=== PATIENT | male | born 1965 | race Caucasian/White ===

== ENCOUNTER 2016-11-22 10:05 | Emergency (ER) | payer MEDICARE ==
[2016-11-22] MEDS ORDERED: NALOXONE HCL INJ 1 MG/ML SYG ONE (10:17)
[2016-11-22] MEDS ORDERED: SODIUM CHLORIDE 0.9% 1000ML 1,000 ML ONE ×2 (10:18→11:52)
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
[2016-11-22] MEDS ORDERED: SUCCINYLCHOLINE CHLORIDE 200 MG/10 ML VIAL ONE (10:47)
--- NOTE | 2016-11-22 10:59 | CT ---
EXAM DESCRIPTION: CT HEAD WITHOUT INTRAVENOUS CONTRAST CLINICAL HISTORY: Altered mental status. COMPARISON: None TECHNIQUE: CT of the head was performed without intravenous contrast . FINDINGS: There is no intracranial hemorrhage, midline shift, mass effect or acute focal infarct, given the limitation of motion artifact on the current study, especially through the skullbase. An MRI examination is more sensitive than the current study in evaluation of early acute infarcts, if present or clinically suspected. There is good borges/white matter differentiation. The ventricular system is normal. Visualized mastoid air cells are unremarkable. The paranasal sinuses are unremarkable. There is no visualization of calvarial or skull base fractures. IMPRESSION: There are no acute intracranial findings, given the limitation of motion artifact on the current study, especially through the region of the skullbase. Electronically signed by: Harish Bey MD 11/22/2016 10:57
[2016-11-22] MEDS ORDERED: PROPOFOL 200 MG/20 ML VIAL IV ONE ×2 (11:30)
[2016-11-22] MEDS ORDERED: MIDAZOLAM INJ 5 MG/5 ML VIAL IV ONE (11:43)
[2016-11-22] MEDS ORDERED: SUCCINYLCHOLINE CHLORIDE 200 MG/10 ML VIAL IV ONE (11:43)
[2016-11-22] MEDS ORDERED: VECURONIUM BROMIDE 10 MG VIAL IV ONE (11:43)
[2016-11-22] MEDS ORDERED: WATER FOR INJ 10 ML VIAL INJ ONE ×2 (11:43→12:03)
--- NOTE | 2016-11-22 12:00 | RAD ---
EXAM DESCRIPTION: X-RAY CHEST- ONE VIEW CLINICAL HISTORY: Status post intubation COMPARISON: 12/10/2013 TECHNIQUE: Single view of the chest. FINDINGS: The tip of the endotracheal tube is 2.2 cm above the tracheal bifurcation and can be retracted for additional 2 cm There is presence of mild infiltrates in the right upper lung zone There are no pleural effusions There are no pneumothoraces. The cardiomediastinal silhouette is stable. IMPRESSION: The tip of the endotracheal tube is 2.2 cm above the tracheal bifurcation and can be retracted for additional 2 cm There is presence of mild infiltrates in the right upper lung zone Electronically signed by: Harish Bey MD 11/22/2016 11:58
[2016-11-22 13:46] VITALS: BP 134/88; TEMP 98.9; O2SAT 100
== END 2016-11-22 12:55 | disposition short-term general hospital (02) ==
LOC: ER 10:05
DX: J96.02 Acute respiratory failure with hypercapnia (principal); J96.01 Acute respiratory failure with hypoxia; G89.4 Chronic pain syndrome; Z79.899 Other long term (current) drug therapy; F32.9 Major depressive disorder, single episode, unspecified; I10 Essential (primary) hypertension; Z86.14 Personal history of Methicillin resistant Staphylococcus aureus infection
CPT/HCPCS: 31500; 36415; 36600; 70450; 71010; 80053; 80329; 82803; 82805; 85025; 85379; 93005; 94002; 94770; A4216; G0479; J0330; J2250; J2310; J3490; J7030

== ENCOUNTER 2017-03-24 16:03 | Inpatient (IN) | payer MEDICARE ==
[2017-03-24] MEDS ORDERED: ALUMINUM & MAGNESIUM HYDROXIDE 30 ML UD PO ONE (16:31)
[2017-03-24] MEDS ORDERED: SODIUM CHLORIDE 0.9% 1000ML 1,000 ML IVS ONE ×2 (16:31→18:51)
[2017-03-24] MEDS ORDERED: SUCRALFATE 1 GM/10 ML 1 GM UD PO ONE (16:31)
[2017-03-24] MEDS ORDERED: ONDANSETRON ODT 8 MG TAB SL SCH (17:00)
[2017-03-24] MEDS ORDERED: POTASSIUM CHLORIDE ELIXIR 20 MEQ/15 ML UD PO ONE (17:14)
--- NOTE | 2017-03-24 17:27 | RAD ---
History: Nausea and vomiting. Chest x-ray: PA view is obtained and does not include the lateral costophrenic angle in its entirety. This study is compared with last available study date 11/22/2016. Left lower lung atelectasis versus patchy infiltrate is present. No definite pleural effusion. Contour of the heart and mediastinum is normal. Two-view abdomen is also performed. The upright film includes the lower lateral right chest. Bowel gas pattern is within normal limits with upright view of the upper abdomen only. No unusual calcific or soft tissue density. No pneumatosis. No bony abnormality. IMPRESSION: 1. Patchy left lower lung atelectasis versus early infiltrate. 2. Negative two-view abdomen. Electronically signed by: Maranda Allen MD 03/24/2017 5:26 PM CDT
[2017-03-24] MEDS ORDERED: POTASSIUM CHLORIDE INJ 40 MEQ 40 MEQ in SODIUM CHLORIDE 0.9% 250ML 250 ML IVPB ONE (18:50)
[2017-03-24] MEDS ORDERED: cefTRIAXone SODIUM 1 GM in SODIUM CHL 0.9% 50ML MIN-BAG+ 50 ML IVPB ONE (18:51)
[2017-03-24] MEDS ORDERED: AZITHROMYCIN IV 500 MG in SODIUM CHLORIDE 0.9% 250ML 250 ML IVPB ONE (18:51)
[2017-03-24] MEDS ORDERED: METHADONE HCL 10 MG TAB PO ONE (18:52)
[2017-03-24] MEDS ORDERED: ALPRAZolam 0.25 MG TAB PO ONE (18:52)
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
[2017-03-24] MEDS ORDERED: cefTRIAXone SODIUM 1 GM VIAL ONE (19:08)
[2017-03-24] MEDS ORDERED: SODIUM CHL 0.9% 50ML MIN-BAG+ 50 ML IVPB ONE (19:08)
[2017-03-24] MEDS ORDERED: AZITHROMYCIN IV 500 MG VIAL IVPB ONE (19:58)
[2017-03-24] MEDS ORDERED: SODIUM CHLORIDE 0.9% 250ML 250 ML ONE ×2 (19:58→22:03)
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
[2017-03-24] MEDS ORDERED: ACETAMINOPHEN 325 MG TAB PO PRN (20:56)
[2017-03-24] MEDS ORDERED: SODIUM CHLORIDE 0.9% (FLUSH) 10 ML SYG IV PRN (20:56)
[2017-03-24] MEDS ORDERED: SODIUM CHLORIDE 0.9% (FLUSH) 10 ML SYG IV SCH (21:00)
[2017-03-24] MEDS ORDERED: IV SET AND CAP CHANGE INJ INJ SCH (21:00)
[2017-03-24] MEDS ORDERED: KCL 40MEQ/NS 1,000 ML IVS PRN (21:05)
[2017-03-24] MEDS: LEVALBUTEROL NEBS 1.25 MG/3 ML VIAL NEB PRN (21:50)
[2017-03-24] MEDS: ONDANSETRON INJ 4 MG/2 ML VIAL IV PRN (22:00)
[2017-03-24] MEDS ORDERED: POTASSIUM CHLORIDE 40mEq 20ML VIAL ONE (22:03)
[2017-03-24] MEDS: KCL 20 MEQ/NS 1,000 ML IVS PRN (23:14)
--- NOTE | 2017-03-25 06:51 | RAD ---
EXAM: Two view chest. INDICATION: Chest pain. COMPARISON: Chest x-ray: 11/22/2016. FINDINGS: Cardiac silhouette: Unremarkable. Dulce: Unremarkable. Lobar consolidation: None. Pleural effusion: None. Pneumothorax: None. Other: None. Bones: Unremarkable. Other: None. IMPRESSION: 1. No acute cardiopulmonary process. Electronically signed by: Ayaan Choi MD 03/25/2017 6:51 AM CDT
[2017-03-25] MEDS: LEVALBUTEROL NEBS 1.25 MG/3 ML VIAL NEB SCH ×2 (08:03→16:20)
[2017-03-25] MEDS: KCL 20 MEQ/NS 1,000 ML IVS PRN (09:25)
--- NOTE | 2017-03-25 09:50 | US ---
Study: Right upper quadrant abdominal ultrasound. Indication: elevated Amylase Lipase, need liver, pancreas GB Technical: Multiplanar, grayscale sonogram of the right upper quadrant of the abdomen obtained. Comparison: None. Findings: The liver is diffusely increased in echogenicity consistent with hepatic steatosis. The liver measures 16.8 cm in length. No discrete live mass. Focal fatty sparing noted along the gallbladder fossa. No gallstones, gallbladder wall thickening, or pericholecystic edema. The common bile duct measures 4.9 mm in diameter. No intrahepatic biliary ductal dilatation. The right kidney is unremarkable. The visualized portions of the aorta and inferior vena cava are normal. The pancreas is not optimally characterized secondary to shadowing bowel gas. Impression: Hepatic steatosis and hepatomegaly. Electronically signed by: Ko Blanco MD 03/25/2017 9:49 AM CDT
--- NOTE | 2017-03-25 11:18 | PCM.CORE ---
Physician DVT/VTE - Nurse DVT Assessment & Total Each Risk Factor Represents 3 Points: Medical PT with Hx of IN, CHF, Severe infection/sepsis Each Risk Factor Represents 1 Point: Age 41-60 Each Risk Factor is 1 Point: Obesity (BMI >25) DVT Assessment Score: 5 - 5 or more Very High Risk Treatments: Early Ambulation *, Sequential Compression Device Pharmacological: Enoxaparin 40mg SQ Daily
[2017-03-25] MEDS ORDERED: KCL 20MEQ/0.45% NS 1,000 ML IVS ONE ×2 (11:26→19:41)
[2017-03-25] MEDS ORDERED: POTASSIUM CHLORIDE 10mEq 5ML VIAL ONE ×2 (11:27→19:30)
[2017-03-25] MEDS: ENOXAPARIN SODIUM 40 MG/0.4 ML SYG SUBCU SCH (11:31)
[2017-03-25] MEDS: [UNRECOGNIZED DRUG - OTHER] IV PRN ×2 (11:32→19:41)
[2017-03-25] MEDS: POTASSIUM CHLORIDE IV PRN ×2 (11:32→19:41)
[2017-03-25] MEDS: KCL IV PRN ×2 (11:32→19:41)
[2017-03-25] MEDS ORDERED: PROPRANOLOL HCL 20 MG TAB ONE (12:15)
[2017-03-25] MEDS ORDERED: LISINOPRIL 10 MG TAB ONE (12:15)
[2017-03-25] MEDS ORDERED: METHADONE HCL 10 MG TAB ONE (12:16)
[2017-03-25] MEDS ORDERED: ALPRAZolam 0.5 MG TAB ONE (12:16)
[2017-03-25] MEDS: METHADONE HCL 10 MG TAB PO SCH ×3 (12:18→21:17)
[2017-03-25] MEDS: LISINOPRIL 10 MG TAB PO SCH (12:40)
[2017-03-25] MEDS: ALPRAZolam 0.5 MG TAB PO SCH ×3 (12:41→21:16)
[2017-03-25] MEDS: PROPRANOLOL HCL 20 MG TAB PO SCH ×2 (12:42→21:00)
--- NOTE | 2017-03-25 16:38 | PN ---
DATE: 03/25/17 SUPERVISING PHYSICIAN: Emile Lenz M.D. SUBJECTIVE: The patient is resting in bed. Said he feels a little bit better today. He has not had any nausea through the night. He has had 1 little episode of diarrhea. He remains afebrile. He has had no reported chest pains or abdominal pains. OBJECTIVE: VITAL SIGNS: T max 98.2, pulse 58, blood pressure 116/80, respirations 20, satting 95% on room air. I's and O's: Output not well documented. Weight 107.3. CHEST: Lungs are clear with no rhonchi, wheezing or rales. They are diminished towards both bases. HEART: Regular rate and rhythm. ABDOMEN: Soft, non-tender with positive bowel sounds which were hyperactive. EXTREMITIES: No clubbing, cyanosis or edema. NEUROLOGIC: He is alert and oriented times three. LABORATORY: White count has improved somewhat, still remains with leukocytosis of 13.4, hemoglobin 15.3, hematocrit 46.0 with platelet count 251,000. Differential today shows to be improving but still has a left shift. Chemistries: Potassium has improved now to 3.2 with sodium 141, BUN improved as well to 32, creatinine is down to 1.72, glucose 125, calcium 8.8, C reactive protein was less than 0.5. Amylase is now normalized at 93, lipase is near normal limits at 52. MICROBIOLOGY: Blood cultures are pending. Sputum culture is pending. RADIOLOGY: Ultrasound of the abdomen per radiology interpretation showed hepatic stenosis with hepatomegaly with the common bile duct measuring 4.9 mm in diameter with no gallstones, gallbladder wall thickening or pericholecystic edema noted. Repeat two view chest film this morning per radiology interpretation showed no cardiopulmonary process is noted. ASSESSMENT: 1. Electrolyte imbalance initially with severe hypokalemia secondary to recent episodes of nausea, vomiting and diarrhea showing improvement after replacement with potassium and IV fluids. 2. Nausea, vomiting and diarrhea without any abdominal pains noted felt to be secondary to viral gastroenteritis versus pancreatitis which is complicated by the underlying dehydration which has shown improvement as well as normalization of his pancreatic enzymes with IV fluids. 3. Elevated pancreatic enzymes with no mention of abdominal pain with ultrasound showing no signs of acute pancreatitis with enzymes normalizing after IV fluids felt to be secondary to persistent nausea and vomiting. 4. Leukocytosis with concerns for left lower lobe pneumonia which is showing improvement after initiation of antibiotic therapy with Rocephin, Azithromycin and IV fluids versus some hemoconcentration and concerns initially for acute pancreatitis more likely demarginalization from persistent nausea and vomiting complicated by dehydration. 5. Concerns for left lower lobe pneumonia felt to be showing improvement after initiation of antibiotic therapy likely community acquired with the patient showing improvement. 6. 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 7. Acute renal insufficiency felt to be prerenal azotemia state complicated by dehydration from persistent nausea, vomiting and diarrhea showing improvement after initiation of IV fluids. 8. History of hypertension, stable. 9. History of chronic back pain on methadone. 10. Chronic anxiety disorder on Xanax. PLAN: The patient is showing improvement. Will continue with IV fluids with potassium replacement as well as keep him NPO until his pancreatic enzymes completed normalize and he is no longer having nausea. At that time, will plan to advance the patient's diet as tolerated. He will remain on antibiotics parenteral again for the underlying concern for pneumonia as he has shown improvement but continues to show leukocytosis. Will continue with Xopenex breathing treatments and aggressive pulmonary hygiene. Anticipate possible discharge tomorrow or the next. Until then, continue to monitor the patient closely and treat appropriately. #[id number] [facility]
[2017-03-25] MEDS: BUDESONIDE/FORMOTEROL 160/4.5 60 PUFF/6 GM INH INH SCH (20:11)
[2017-03-25] MEDS ORDERED: SODIUM CHL 0.9% 50ML MIN-BAG+ 50 ML IVPB ONE (20:52)
[2017-03-25] MEDS ORDERED: ZOLPIDEM TARTRATE 5 MG TAB ONE (20:53)
[2017-03-25] MEDS ORDERED: cefTRIAXone SODIUM 1 GM VIAL ONE (20:53)
[2017-03-25] MEDS ORDERED: ZOLPIDEM TARTRATE 10 MG TAB ONE (20:54)
[2017-03-25] MEDS ORDERED: SERTRALINE HCL 50 MG TAB PO SCH (21:00)
[2017-03-25] MEDS ORDERED: cefTRIAXone SODIUM 1 GM in SODIUM CHL 0.9% 50ML MIN-BAG+ 50 ML IVPB SCH (21:00)
[2017-03-25] MEDS ORDERED: AZITHROMYCIN 250 MG TAB PO SCH (21:00)
[2017-03-25] MEDS ORDERED: ZOLPIDEM TARTRATE 12.5 MG PO SCH (21:00)
[2017-03-25] MEDS: CIPROFLOXACIN 500 MG TAB PO SCH (21:16)
[2017-03-25] MEDS ORDERED: MAGNESIUM HYDROXIDE 30 ML UD PO ONE (22:30)
[2017-03-26] MEDS: LEVALBUTEROL NEBS 1.25 MG/3 ML VIAL NEB SCH ×2 (00:21→08:28)
[2017-03-26] MEDS ORDERED: KCL 20MEQ/0.45% NS 1,000 ML IVS ONE (03:55)
[2017-03-26] MEDS ORDERED: POTASSIUM CHLORIDE 10mEq 5ML VIAL ONE (03:55)
[2017-03-26] MEDS ORDERED: OMEPRAZOLE CAP 20 MG CAP ONE (04:00)
[2017-03-26] MEDS: POTASSIUM CHLORIDE IV PRN (04:09)
[2017-03-26] MEDS: KCL IV PRN (04:09)
[2017-03-26] MEDS: [UNRECOGNIZED DRUG - OTHER] IV PRN (04:09)
[2017-03-26] MEDS: LEVALBUTEROL NEBS 1.25 MG/3 ML VIAL NEB PRN (04:30)
[2017-03-26 06:42] VITALS: O2SAT 95
[2017-03-26] MEDS ORDERED: OMEPRAZOLE CAP 20 MG CAP PO SCH (07:00)
[2017-03-26] MEDS: ONDANSETRON INJ 4 MG/2 ML VIAL IV PRN (08:08)
[2017-03-26] MEDS: BUDESONIDE/FORMOTEROL 160/4.5 60 PUFF/6 GM INH INH SCH (08:28)
[2017-03-26] MEDS: ALPRAZolam 0.5 MG TAB PO SCH (08:41)
[2017-03-26] MEDS: LISINOPRIL 10 MG TAB PO SCH (08:41)
[2017-03-26] MEDS: CIPROFLOXACIN 500 MG TAB PO SCH (08:42)
[2017-03-26] MEDS: METHADONE HCL 10 MG TAB PO SCH (08:42)
[2017-03-26] MEDS: PROPRANOLOL HCL 20 MG TAB PO SCH ×2 (08:46→12:29)
[2017-03-26] MEDS ORDERED: SODIUM CHLORIDE 0.9% (FLUSH) 10 ML SYG IV SCH (09:00)
[2017-03-26 11:50] VITALS: BP 116/77; TEMP 97
[2017-03-26] MEDS: ENOXAPARIN SODIUM 40 MG/0.4 ML SYG SUBCU SCH (12:01)
--- NOTE | 2017-03-28 10:45 | DS ---
SUPERVISING PHYSICIAN: Emile Lenz MD DISCHARGE DIAGNOSIS: 1. Electrolyte imbalance on admission with severe hypokalemia secondary to recent episodes of nausea, vomiting and diarrhea associated with probable viral gastroenteritis, requiring potassium replacement and IV fluids, showing improvement and normalization prior to discharge. 2. Nausea, vomiting and diarrhea without any mention of abdominal pain with ultrasound being within normal limits per radiology interpretation. This was felt to be secondary to viral gastroenteritis, less likely pancreatitis as he showed good clinical improvement with IV fluids. 3. Elevated pancreatic enzymes with no mention of abdominal pain with ultrasound showing no signs of acute pancreatitis with enzymes normalizing after IV fluids, felt to be secondary to persistent nausea, vomiting, diarrhea and underlying dehydration. 4. Leukocytosis with some concerns for early left lower lobe pneumonia, which showed improvement after initiation of antibiotic therapy with Rocephin, azithromycin, and IV fluids, felt to be likely secondary to some demargination from persistent nausea and vomiting and complicated by underlying dehydration. 5. Concerns for left lower lobe pneumonia, showing improvement after initiation of antibiotic therapy, felt to be community acquired with the patient showing improvement. 6. 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 7. Acute renal insufficiency, felt to be prerenal azotemia state complicated by dehydration from persistent nausea, vomiting and diarrhea, showing improvement and normalization after initiating IV fluids. 8. History of hypertension, stable. 9. History of chronic back pain on methadone. 10. Chronic anxiety disorder, on Xanax. HISTORY OF PRESENT ILLNESS: Mr. Vo is a 51-year-old male patient who presented to the Emergency Department after he was experiencing four days of nausea and vomiting with some diarrhea. He denied any actual abdominal pains and was unsure whether or not he had been running a fever. He notes he has had some generalized achiness and some overall weakness. He does have significant history of chronic back pain for which he takes methadone as well as anxiety disorder for which he is on Xanax and has been unable to keep those medications down for the last 24 hours prior to admission. It was noted that a similar illness was reported in his within the last several days which again started with nausea and advanced to diarrhea. Laboratory studies in the Emergency Department showed a leukocytosis of 19,000 with a mild left shift. Chemistries indicated hypokalemia of 2.5 with some acute renal insufficiency with BUN 42, creatinine 2.41. Lactic acid normal at 1.1. Liver functions were all within normal limits. Troponin 0.02. He was also noted to have elevated pancreatic enzymes. He did have an EKG completed that showed normal sinus rhythm and some mild ST-T wave abnormalities with some T-wave inversions in the anterior leads, but the patient reported no chest pains. He had an abdominal series that included chest and per radiology interpretation there was note of patchy left lower lung infiltrate with concerns for pneumonia. Otherwise, abdominal two view exam was negative. Given the patient's symptomatology and severe hypokalemia, the patient was initiated on potassium replacement with p.o. potassium and a K-rider in the Emergency Department. There were also concerns for developing left lower lobe pneumonia. Therefore, he was started on an antibiotic regimen parenterally to include Rocephin and azithromycin after blood cultures were completed. Given the patient has significant findings for hypokalemia, acute renal injury and possibly developing pneumonia, the patient was admitted to the Medical/Surgical Floor for continuation of treatment and evaluation. LABORATORY: Initial white count on admission was 19.3. After treatment and intravenous antibiotics and fluids, CBC normalized prior to discharge. White count 10.1, hemoglobin 14.2, hematocrit 42.9, platelet count 192,000, differential within normal limits. Chemistries on admission showed low potassium of 2.5, BUN 42, creatinine 2.41, magnesium 2.6. Calcium 9.4. Liver functions were within normal limits. He did have an elevated amylase of 152 as well as lipase 84. C-reactive protein was less than 0.5. After initiation of treatment with saline, potassium, IV fluids, and initiation of antibiotics, his chemistries normalized and on discharge, electrolytes were within normal limits. BUN had normalized to 17, creatinine 1.09, amylase and lipase were normalized. Urinalysis showed just a trace of intact blood on admission with 3 to 5 WBCs, 3 to 5 epithelials, 1+ sediment and small amount of mucus. MICROBIOLOGY: Two blood cultures remained negative after 3 days. RADIOLOGY: Abdominal x-ray in the Emergency Room prior to admission per radiology interpretation showed patchy left lower lung atelectasis versus early infiltrate, otherwise negative two view abdomen. This was followed up with an abdominal ultrasound after admission and per radiology interpretation there was note of hepatic steatosis and hepatomegaly, but the pancreas was not optimally characterized secondary to shadow and bowel gas pattern, but there were no gallstones, gallbladder wall thickening, or pericholecystic edema noted. Bile duct measured 4.9 mm in diameter. There was no intrahepatic biliary duct dilation. Please refer to the radiology report for full details. Repeat chest x-ray on 03/25/17 per radiology interpretation showed no acute cardiopulmonary processes noted. HOSPITAL COURSE: Mr. Fritz Vo was admitted through the Emergency Department as noted in history of present illness for severe dehydration with concern initially for pancreatitis versus cholecystitis versus viral gastroenteritis complicated by underlying community acquired pneumonia. He was initiated on antibiotics to include Rocephin and azithromycin. He was also provided potassium replacement for the severe hypokalemia and dehydration with normal saline and additional potassium. On the morning of discharge, he clinically had shown normalization of his electrolytes with potassium normalizing. He remained without any chest pains. There was no radiographic evidence of cholecystitis. His pancreatic enzymes had normalized. He was advanced from a clear liquid diet to a full diet on the morning of discharge and was doing clinically well and felt well enough to be discharged to followup in the outpatient setting. Given that there were concerns for gastroenteritis, given he had persistent nausea, vomiting and diarrhea prior to admission, he was started on ciprofloxacin to cover for any possible gastrointestinal pathogens. PLAN: Mr. Vo was given instructions to have close clinical followup after discharge with his primary care provider, Dr. Galindo. He was to resume his home medications as instructed and to take new medications as directed. He was to advance his diet slowly as tolerated and he was encouraged to drink plenty of fluids to prevent dehydration. He was told to return to the hospital should his condition worsen or there were any other concerning symptoms. At time of discharge, new prescriptions included: 1. Zofran tablets 4 mg every 6 hours as needed for nausea, vomiting, #8. 2. Refill of his Xanax 1 mg 3 times a day, #30, to be refilled after this by Dr. Galindo. 3. Zithromax 250 mg q.24h. for additional 3 days. 4. Align 4 mg daily, #14. 5. Ciprofloxacin 500 mg twice daily for concerns of gastroenteritis. 6. Melatonin 10 mg daily at bedtime, #30, for insomnia. 7. Inderal 40 mg twice daily, 20 mg tablets as previously prescribed. At time of discharge, condition was stable. He was to resume his usual diet and increase activity as tolerated. #[id number] [facility]
== END 2017-03-26 13:02 | disposition home or self-care (01) | DRG 682 ==
LOC: ER 16:03 → MS 20:28 → OBSVTOIN 20:28
PROVIDERS: ADMIT Nurse Practitioner Family; ATTEND Nurse Practitioner Family
DX: N17.9 Acute kidney failure, unspecified (principal); J18.9 Pneumonia, unspecified organism; E87.6 Hypokalemia; A08.4 Viral intestinal infection, unspecified; E86.0 Dehydration; R74.8 Abnormal levels of other serum enzymes; I10 Essential (primary) hypertension; G89.29 Other chronic pain; M54.9 Dorsalgia, unspecified; F41.9 Anxiety disorder, unspecified; H54.0 Blindness, both eyes; E66.9 Obesity, unspecified; Z79.891 Long term (current) use of opiate analgesic; Z79.899 Other long term (current) drug therapy; T65.91XS Toxic effect of unspecified substance, accidental (unintentional), sequela; Z87.891 Personal history of nicotine dependence; Z68.33 Body mass index [BMI] 33.0-33.9, adult

== ENCOUNTER → 2017-11-26 | Outpatient (CLI) | payer MEDICARE | END | disposition home or self-care (01) | LOC: LAB.O 12:11 | PROVIDERS: ATTEND Family Medicine | DX: R73.09 Other abnormal glucose (principal); Z12.5 Encounter for screening for malignant neoplasm of prostate; I10 Essential (primary) hypertension | CPT/HCPCS: 36415; 80053; 80061; 83036; 85025; G0103 ==